=== PATIENT | male | born 1995 | race Caucasian/White ===

== ENCOUNTER 2017-04-09 22:56 | Emergency (ER) | payer SELFPAY ==
[2017-04-09] MEDS ORDERED: DIAZEPAM INJ 10 MG/2 ML DISP.SYRIN IV ONE (23:50)
[2017-04-09] MEDS ORDERED: NORMAL SALINE 1000 ML 1,000 ML IV ONE (23:50)
[2017-04-09] MEDS ORDERED: DIPHENHYDRAMINE HCL 50 MG/ML VIAL IV ONE (23:53)
--- NOTE | 2017-04-09 23:56 | ER Document Report ---
ED General - General Chief Complaint: Numbness Stated Complaint: NUMBNESS ON LEFT SIDE OF BODY Time Seen by Provider: 04/09/17 23:47 Notes: Patient is a 21-year-old male who presents with complaint of some numbness and cramping of the muscles on left side of his body. Patient says that he was diagnosed by his primary care doctor is having anxiety. Patient's friend has mental health problems and therefore he went to his friend who gave him some pills. He has no idea what the pills were. He took off for the pills at once. He says he does not think he was supposed to take all for the pills at once. Since then he has developed some numbness on his left side and now has cramping of the muscles into his neck. No vomiting. No fevers. No other complaints at this time. Mother is at bedside and said this is never happened before. TRAVEL OUTSIDE OF THE [place] IN LAST 30 DAYS: No - Related Data Allergies/Adverse Reactions: No Known Allergies Allergy (Verified 05/02/14 20:01) Past Medical History - Social History Smoking Status: Never Smoker Frequency of alcohol use: None Drug Abuse: Prescription drugs Family History: Reviewed & Not Pertinent Patient has suicidal ideation: No Patient has homicidal ideation: No Renal/ Medical History: Denies: Hx Peritoneal Dialysis - Immunizations Immunizations up to date: Yes Hx Diphtheria, Pertussis, Tetanus Vaccination: Yes Review of Systems - Review of Systems Notes: My Normal Review Basic REVIEW OF SYSTEMS: CONSTITUTIONAL : Denies fever, chills, or sweats. Denies recent illness. EENT: Denies eye, ear, throat, or mouth pain or symptoms. Denies nasal or sinus congestion. CARDIOVASCULAR: Denies chest pain. RESPIRATORY: Denies cough, cold, or chest congestion. Denies shortness of breath, difficulty breathing, or wheezing. GASTROINTESTINAL: Denies abdominal pain. Denies nausea, vomiting, or diarrhea. Denies constipation. Last BM: MUSCULOSKELETAL: Spasm in his neck.. SKIN: Denies rash or skin lesions. NEUROLOGICAL: Denies altered mental status or loss of consciousness. Denies headache. Denies weakness or paralysis or loss of use of either side. Denies problems with gait or speech. Some numbness into the left side. PSYCHIATRIC: History of anxiety. ALL OTHER SYSTEMS REVIEWED AND NEGATIVE. Physical Exam - Vital signs Vitals: Temp Pulse Resp BP Pulse Ox 98 F 89 18 154/79 H 98 04/09/17 23:04 04/09/17 23:04 04/09/17 23:04 04/09/17 23:04 04/09/17 23:04 - Notes Notes: General Appearance: Well nourished, alert, cooperative, no acute distress, moderate obvious discomfort. Vitals: reviewed, See vital signs table. Head: no swelling or tenderness to the head Eyes: PERRL, EOMI, Conjuctiva clear Mouth: No decreasd moisture Throat: No tonsillar inflammation, No airway obstruction, No lymphadenopathy Neck: Patient has muscle spasm of the sternocleidomastoid and trapezius on the left side of his neck. This is causing this had to be pulled to the left side and down. Lungs: No wheezing, No rales, No rhonci, No accessory muscle use, good air exchange bilaterally. Heart: Normal rate, Regular rythm, No murmur, no rub Abdomen: Normal BS, soft, No rigidity, No abdominal tenderness, No guarding, no rebound, no abdominal masses, no organomegaly Extremities: strength 5/5 in all extremities, good pulses in all extremities, no swelling or tenderness in the extremities, no edema. Skin: warm, dry, appropriate color, no rash Neuro: speech clear, oriented x 3, normal affect, responds appropriately to questions. Course - Re-evaluation Re-evalutation: 04/10/17 01:48 Mr. De Luna is feeling much improved after receiving Benadryl and Valium. Symptoms are now resolved. Patient will be discharged home but is strongly encouraged to not take medications are not prescribed for him. Patient to follow-up with his primary care doctor. Patient agrees with plan will be discharged home. I suspect that medication he took was probably a typical antipsychotic such as Haldol which caused a dystonic reaction. Dictation of this chart was performed using voice recognition software; therefore, there may be some unintended grammatical errors. 04/10/17 07:46 - Vital Signs Vital signs: Temp Pulse Resp BP Pulse Ox 98 F 89 17 116/52 L 99 04/09/17 23:04 04/09/17 23:04 04/10/17 02:44 04/10/17 02:44 04/10/17 02:44 - Laboratory Result Diagrams: 04/10/17 00:40 04/10/17 00:40 Laboratory results interpreted by me: 04/10/17 00:40 Carbon Dioxide 20 L Glucose 114 H Total Bilirubin 1.6 H ALT 56 H Salicylates < 1.0 L Acetaminophen < 10 L - EKG Interpretation by Me Additional EKG results interpreted by me: 04/10/17 00:04 EKG is reviewed and interpreted by me. EKG shows sinus tachycardia with a rate of 133 bpm. Unable to determine if patient has any ST segment elevation or depression because he has so much baseline artifact from him not being able to stay still. OK interval is within normal range. QRS duration is normal- appearing but according to the EKG is measured at 142 ms which would be warranted. QTc interval is difficult to determine. Discharge - Discharge Clinical Impression: Dystonic drug reaction Medication side effect Qualifiers: Encounter type: initial encounter Qualified Code(s): T88.7XXA - Unspecified adverse effect of drug or medicament, initial encounter Condition: Good Disposition: HOME, SELF-CARE Additional Instructions: Please never take medications that are not prescribed to you. Please take benadryl 25mg if you start to have muscle spasms again. Return to the ER if the Benadryl does not help. Please follow up with your doctor on Thursday for reevaluation. Forms: Return to Work
[2017-04-10 00:24] LABS: APPEARANCE,URINE CLEAR; BILIRUBIN,URINE NEGATIVE (NEGATIVE); GLUCOSE, URINE NEGATIVE (NEGATIVE); KETONES,URINE NEGATIVE (NEGATIVE); LEUKOCYTE ESTERASE,URINE NEGATIVE (NEGATIVE); NITRITE,URINE NEGATIVE (NEGATIVE); PROTEIN,URINE NEGATIVE (NEGATIVE); URINE SPECIFIC GRAVITY 1.006; UROBILINOGEN,URINE NEGATIVE mg/dL (<2.0)
[2017-04-10 00:38] LABS: URINE BARBITURATES SCREEN NEGATIVE; URINE METHADONE SCREEN NEGATIVE; URINE OPIATES LOW NEGATIVE; URINE PHENCYCLIDINE SCREEN NEGATIVE
[2017-04-10 01:02] LABS: ABSOLUTE EOSINOPHILS # (AUTO) 0.1 10^3/uL (0.0-0.6); ABSOLUTE LYMPHOCYTES (AUTO) 2.7 10^3/uL (0.5-4.7); ABSOLUTE MONOCYTES (AUTO) 0.7 10^3/uL (0.1-1.4); ABSOLUTE NEUT (AUTO) 5.4 10^3/uL (1.7-8.2); BASOPHILS % (AUTO) 0.4 % (0-2); EOSINOPHILS % (AUTO) 1.3 % (0-6); HEMATOCRIT 45.5 % (37.9-51.0); HEMOGLOBIN 15.3 g/dL (13.5-17.0); HGB HCT DIFFERENCE 0.4; MEAN CORPUSCULAR HEMOGLOBIN 30.4 pg (27.0-33.4); MEAN CORPUSCULAR HGB CONC 33.7 g/dL (32.0-36.0); MEAN CORPUSCULAR VOLUME 90 fl (80-97); MONOCYTES % (AUTO) 7.6 % (3-13); RED BLOOD COUNT 5.03 10^6/uL (4.35-5.55); RED CELL DISTRIBUTION WIDTH 12.3 % (11.5-14.0); SEGMENTED NEUTROPHILS % (AUTO) 60.7 % (42-78); WHITE BLOOD COUNT 8.9 10^3/uL (4.0-10.5)
[2017-04-10 01:30] LABS: ALANINE AMINOTRANSFERASE 56 U/L (10-40); ALBUMIN 4.8 g/dL (3.7-5.6); ALKALINE PHOSPHATASE 95 U/L (65-260); ANION GAP 16 (5-19); ASPARTATE AMINO TRANSFERASE 37 U/L (10-45); BILIRUBIN,DIRECT 0.4 mg/dL (0.0-0.4); BILIRUBIN,TOTAL 1.6 mg/dL (0.2-1.3); BLOOD UREA NITROGEN 18 mg/dL (7-20); CALCIUM 9.5 mg/dL (8.4-10.2); CARBON DIOXIDE 20 mmol/L (22-30); CHLORIDE 105 mmol/L (98-107); GLUCOSE 114 mg/dL (75-110); MAGNESIUM 1.9 mg/dL (1.6-2.3); POTASSIUM 4.1 mmol/L (3.6-5.0); SODIUM 141.2 mmol/L (137-145); TOTAL PROTEIN 7.6 g/dL (6.3-8.2)
[2017-04-10 01:33] LABS: ALCOHOL < 10 mg/dL (NONE DETECTED)
[2017-04-10 02:51] VITALS: BP 116/52
--- NOTE | 2017-04-10 05:57 | EKG REPORT ---
SEVERITY:- ABNORMAL ECG - SINUS TACHYCARDIA PAIRED VENTRICULAR PREMATURE COMPLEXES IVCD, CONSIDER ATYPICAL RBBB INFERIOR Q WAVES, PROBABLY NORMAL VARIATION ST DEPRESSION, CONSIDER ISCHEMIA, INF LEADS : Confirmed by: Ginger Brown MD 10-Apr-2017 05:57:30
== END 2017-04-10 02:52 | disposition home or self-care (01) ==
LOC: ER 22:56
DX: G24.09 Other drug induced dystonia (principal); T50.905A Adverse effect of unspecified drugs, medicaments and biological substances, initial encounter; R00.0 Tachycardia, unspecified
CPT/HCPCS: 93005; 99284; 96361; 96374; 96375; 36415; 80307 ×4; 83735; 85025; 80053; 81001; 93010; J3360; J1200; J7030